=== PATIENT | female | born 1990 | race Caucasian/White ===

== ENCOUNTER → 2022-01-29 | Outpatient (CLI) | payer BC ==
[~2022-01-29] MED LIST: AMOXICILLIN 8751 TAB PO; NORCO 325 MG-51 TAB PO; PROTONIX 40MG T40 MG PO; PROZAC 20MG20 MG PO; VOLTAREN 75 DR75 MG PO; ZOFRAN 4MG T4 MG/TAB PO
== END ==
LOC: MC.RAD 07:51
DX: N63.15 Unspecified lump in the right breast, overlapping quadrants (principal)